=== PATIENT | female | born 1970 | race Hispanic/Latino ===

== ENCOUNTER 2021-03-25 07:22 | Emergency (ER) | payer OTHER ==
[~2021-03-25] VITALS: Ht 160 cm; Wt 74.8 kg
[2021-03-25] MEDS ORDERED: DIAZEPAM 5 MG TAB PO ONE (08:00)
[2021-03-25] MEDS ORDERED: KETOROLAC TROMETHAMINE 60 MG/2 ML VIAL IM ONE (08:00)
[2021-03-25 09:05] VITALS: BP 130/80
== END 2021-03-25 09:07 | disposition home or self-care (01) ==
LOC: ER 07:50
DX: G44.209 Tension-type headache, unspecified, not intractable (principal)
CPT/HCPCS: 99282; J1885